=== PATIENT | male | born 1970 | race Two or more races ===

== ENCOUNTER 2024-05-22 09:25 | Emergency (ER) | payer MEDICAID, SELFPAY ==
[2024-05-22 09:48] VITALS: BP 95/66; PULSE 94; RESP 18; TEMP 37; O2SAT 98; BMI 21.4
--- NOTE | 2024-05-22 09:57 | XR_ITS ---
EXAMINATION: XR chest 1V portable ORDERING PROVIDER: Pantera Madrid (CEREAL CHEMIST), CEREAL CHEMIST HISTORY: cp TECHNIQUE: Single portable AP radiograph of the chest. COMPARISON: 09/02/2015, chest radiographs. FINDINGS: Lines and Tubes: None. Lungs: No consolidation. Projecting of the left lateral lower lung over the anterior left sixth rib is a 1.1 cm ovoid opacity, grossly similar to 09/02/2015. Pleura: No pneumothorax or pleural effusion. Cardiomediastinal Silhouette: Normal. Soft Tissues/Bones: Bifid anterior left fifth rib variant. IMPRESSION: 1. No acute pulmonary findings. 2. Similar 1.1 cm ovoid opacity projecting over the left lateral lower lung. This may represent prominent nipple shadow, summation of tissues, or underlying pulmonary nodule. Consider correlation with 2 view chest radiographs with nipple markers.
--- NOTE | 2024-05-22 09:57 | EKG_ITS ---
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
--- NOTE | 2024-05-22 09:58 | XR_ITS ---
EXAMINATION: CT head/brain wo con ORDERING PROVIDER: Pantera ZAMUDIO), SINGER BACK TENDER HISTORY: headache TECHNIQUE: CT scanner was used in the volumetric, helical non-contrast acquisition of the head with 2-D and 3-D reformats created on a separate workstation and submitted for interpretation. Institutional dose reducing protocols were utilized. RADIATION DOSE: DLP 1005.79 mGy-cm COMPARISON: None. FINDINGS: BRAIN: No acute intracranial hemorrhage, mass effect, or midline shift. OBANDO-WHITE DIFFERENTIATION: Preserved. EXTRA-AXIAL SPACES: No abnormal collection. SULCI: Normal. VENTRICLES: Normal. BASAL CISTERNS: Normal. VESSELS: No hyperdense vessel sign. DURAL VENOUS SINUSES: Symmetric attenuation. POSTERIOR FOSSA: Normal. MASTOID AIR CELLS: Clear. PARANASAL SINUSES: Trace mucosal thickening right anterior ethmoid air cells. ORBITS: Normal. BONES: Normal. SCALP: Normal. IMPRESSION: No acute intracranial findings.
--- NOTE | 2024-05-22 09:58 | PD.EDRME ---
Rapid Medical Screening Exam RME Arrival date/time: 05/22/24 09:25 54-year-old male insulin-dependent diabetic presents the emergency department today complains of inability see out of his right eye since patient reports headache dizziness and unsteadiness Chief Complaint: Shortness of Breath/Dyspnea Vital signs: Vital Signs Temperature 98.6 F 05/22/24 09:48 Pulse Rate 94 05/22/24 09:48 Respiratory Rate 18 05/22/24 09:48 Blood Pressure 95/66 05/22/24 09:48 Pulse Oximetry (%) 98 05/22/24 09:48 Oxygen Delivery Method Room Air 05/22/24 09:48
[2024-05-22 10:00] VITALS: PULSE 88
[2024-05-22 10:40] VITALS: BP 130/86; PULSE 94; RESP 14; TEMP 36.9; O2SAT 96
[2024-05-22] MEDS: SODIUM CHLORIDE 0.9% 1000 ML 1,000 ML 999 ML IV ×2 (10:40→11:51)
[2024-05-22 10:56] LABS: Base Excess, Venous 7 (-3-3); O2 Saturation, Venous 35 % (96-97); PCO2, Venous 56 mmHg (36-56); PO2, Venous 22 mmHg (15-58); pH, Venous 7.38 (7.33-7.66)
[2024-05-22 11:02] LABS: Basophils % (Auto) 0 % (0-2.5); Eosinophils # (Auto) 0.1 Thou/mm3 (0.0-0.5); Eosinophils % (Auto) 1 % (0-10); Hematocrit 37.1 % (41.0-53.0); Immature Granulocytes % (Auto) 0 % (0-0); Immature Granulocytes Auto 0.02 Thou/mm3 (0.00-0.00); Lymphocytes # (Auto) 1.4 Thou/mm3 (1.0-4.8); Lymphocytes % (Auto) 23 % (10-50); Mean Corpuscular Volume 86 fL (80-100); Monocytes # (Auto) 0.5 Thou/mm3 (0.0-0.8); Monocytes % (Auto) 8 % (0-12); Neutrophils # (Auto) 3.9 Thou/mm3 (1.8-7.7); Neutrophils % (Auto) 67 % (37-80); Nucleated Red Blood Cell % 0 /100 WBC (0); Platelet Count 195 Thou/mm3 (140-440); RDW Standard Deviation 38.5 fL (35.1-43.9); Red Blood Count 4.34 Miln/mm3 (4.50-5.90); White Blood Count 5.8 Thou/mm3 (3.8-10.6)
[2024-05-22 11:05] LABS: Beta Hydroxybutyrate 1.8 mmol/L (<0.6)
[2024-05-22 11:20] LABS: Collection Type, Urine Clean Catch; Squamous Epithelial Cell,Urine 0 /hpf (0-5)
[2024-05-22 11:25] LABS: INR 0.9 (0.9-1.3); Prothrombin Time 10.3 Seconds (9.0-12.2)
[2024-05-22 11:32] LABS: B-Type Natriuretic Peptide < 20 pg/mL (0-100)
--- NOTE | 2024-05-22 11:39 | EDNOTE_ITS ---
ED General RME/HPI General Chief complaint: Shortness of Breath/Dyspnea Stated complaint: SOB, LEG NUMBNESS, LOSS SIGHT LEFT EYE; DIABETIC Time Seen by Provider: 05/22/24 10:47 Arrival date/time: 05/22/24 09:25 RME / HPI RME / HPI narrative: 05/22/24 09:25 54-year-old male insulin-dependent diabetic presents the emergency department today complains of inability see out of his right eye since patient reports headache dizziness and unsteadiness DR. AYALA MAIN ED EVALUATION: 54 year old male with past medical history significant for diabetes presents to the Emergency Department with complaints of shortness of breath, dyspnea on exertion, dizziness, right eye erythema and right eye blurred vision. Patient reported that this morning he walked 9 to 15 feet and got short of breath and dizzy spells . He states he thought maybe since he has not ate and made breakfast but still feels dizzy and short of breath. He noncompliant with his diabetic medications. He also reports that his right eye has been red and watery since , 4 days ago; he also has right eye blurred vision. Related Data Previous Rx's ?Medication ?Instructions ?Recorded insulin glargine 100 unit/mL 5 unit (0.05 mL) subcut Q PM #2 09/05/15 subcutaneous solution (Lantus vials U-100 Insulin) insulin regular human 100 unit/mL 0 unit (0 mL) subcut ACHS #2 vials 09/05/15 injection solution (Novolin R Regular U-100 Insulin) ondansetron HCl 4 mg tablet 4 mg PO QID PRN nausea and 10/02/18 (Zofran) vomiting #30 tabs famotidine 20 mg tablet 20 mg PO QDAY #14 tabs 09/23 ondansetron 4 mg disintegrating 4 mg PO Q8H #14 tabs 0 09/23/21 tablet erythromycin 5 mg/gram (0.5 %) eye 0.5 inch ophthalmic (eye) QID 10 05/22/24 ointment days #50 grams Allergies Allergy/AdvReac Type Severity Reaction Status Date / Time No Known Allergies Allergy Verified 05/22/24 09:32 Review of Systems Review of Systems Systems Reviewed: All systems reviewed, normal except as documented Narrative Review of Systems: GEN: No fever, no chills, no weight loss EYES: + right eye erythema and watery, + right eye blurred vision, no pain HEENT: No ear pain, no congestion, no sore throat PULM: + shortness of breath, no cough, no congestion CV: No chest pain, + dyspnea on exertion, no palpitations GI: No nausea, no vomiting, no diarrhea, no pain, no constipation : No frequency, no urgency and no dysuria MUSC/SKEL: No joint pain, no back pain SKIN: No rash PSYCH: No hallucinations, no depression HEME/LYMPH: No easy bleeding or bruising tendencies NEURO: No weakness, no headache, + dizziness Past Medical History Past Medical History ENDOCRINE: Positive Diabetes Mellitus Type 2 Social History SMOKING STATUS: Never smoker SUBSTANCE USE: does not use ALCOHOL: Never ED Exam Narrative Physical exam: GENERAL APPEARANCE: alert and oriented x 4, well-developed, well-nourished, no acute distress VITALS: All vitals were reviewed and the pulse ox is 96% on room air, which is normal according to my interpretation. HEENT: Normocephalic, atraumatic; corneal injection; mucous membranes pink, moist; oropharynx clear NECK: Supple LUNGS: CTABL; no wheezes, no rales, no rhonchi HEART: Regular rate, regular rhythm; normal S1, S2; no murmurs ABDOMEN: non distended; normal BS; soft, no tenderness, no guarding, no rebound; no masses, no organomegaly, no hernia BACK: no CVA tenderness EXTREMITIES: atraumatic; no edema NEUROLOGIC: awake; alert and oriented x4; cranial nerves II-XII grossly intact; no focal sensory or motor deficits PSYCHIATRIC: appropriate mood and affect SKIN: warm, dry, normal color; no rashes Course Quality Measures none Orders Category Date Time Status Bedside Blood Glucose NOW Care 05/22/24 09:57 Completed Bedside Blood Glucose Q1HR Care 05/22/24 10:51 Completed Bull Float Finisher NOW Care 05/22/24 10:00 Completed EKG (ED ONLY) *Do not use* NOW Care 05/22/24 09:57 Completed Insert IV NOW Care 05/22/24 10:00 Completed Visual Acuity NOW Care 05/22/24 10:[address] head/brain wo con Stat Exams 05/22/24 09:58 Completed EKG (ED Only) Stat Exams 05/22/24 09:57 Draft XR chest 1V portable Stat Exams 05/22/24 09:57 Completed B-Type Natriuretic Peptide Stat Lab 05/22/24 10:40 Completed Beta Hydroxybutyrate Stat Lab 05/22/24 10:40 Completed CBC Stat Lab 05/22/24 10:40 Completed Comprehensive Metabolic Panel Stat Lab 05/22/24 10:40 Completed Drug Screen,Urine Stat Lab 05/22/24 10:41 Completed Magnesium Stat Lab 05/22/24 10:40 Completed Misc Send Out* Stat Lab 05/22/24 10:40 Received Partial Thromboplastin Time Stat Lab 05/22/24 10:40 Completed Prothrombin Time with INR Stat Lab 05/22/24 10:40 Completed Troponin I Stat Lab 05/22/24 10:40 Completed Urinalysis Stat Lab 05/22/24 10:41 Completed VBG [Venous Blood Gas] Stat Lab 05/22/24 10:40 Completed Insulin Regular Med 05/22/24 13:30 Discontinued 5 unit IV X1 ONE Insulin Regular Med 05/22/24 14:58 Discontinued 5 unit IV X1 ONE Sodium Chloride 0.9% 1000 ml [Ns] 1,000 ml Med 05/22/24 10:00 Discontinued IV 999 mls/hr Sodium Chloride 0.9% 1000 ml [Ns] 1,000 ml Med 05/22/24 11:31 Discontinued IV 999 mls/hr Vital Signs Vital signs: Vital Signs Temperature 98.6 F 05/22/24 09:48 Pulse Rate 94 05/22/24 09:48 Respiratory Rate 18 05/22/24 09:48 Blood Pressure 95/66 05/22/24 09:48 Pulse Oximetry (%) 98 05/22/24 09:48 Oxygen Delivery Method Room Air 05/22/24 09:48 Procedures -ED EKG Interpretation #1: Date of EK05/22/24 Time of EK:07 Rate: 92 Interpretation: Interpreted by me Additional EKG comment: sinus rhythm, rate 92, no acute ischemic changes MDM Patient data External records reviewed:: [facility] previous records (Reviewed last ED visit dated 09/23/21, discharged with the following: abdominal pain) Clinical information provided by:: patient Social determinants that could affect healthcare access:: none Patient has the following chronic illnesses:: diabetes How is presenting disease/condition affected by chronic disease/condition?: e xacerbated by Evaluation data The following diagnostics were reviewed and interpreted by me:: lab results, radiology exam(s) and EKG tracing(s) (EKG#1: EKG at 1007 hours. Interpreted by me: sinus rhythm, rate 92, no acute ischemic changes) Lab and/or radiology exams considered but not ordered:: none Interpretation Summary: Procedure(s): XR chest 1V portable Accession Number(s): [id number] cc: Julius ZAMUDIO),Pantera FARRIS; Albin Sifuentes MD~ EXAMINATION: XR chest 1V portable ORDERING PROVIDER: Pantera Madrid NP, NP HISTORY: cp TECHNIQUE: Single portable AP radiograph of the chest. COMPARISON: 09/02/2015, chest radiographs. FINDINGS: Lines and Tubes: None. Lungs: No consolidation. Projecting of the left lateral lower lung over the anterior left sixth rib is a 1.1 cm ovoid opacity, grossly similar to 09/02/2015. Pleura: No pneumothorax or pleural effusion. Cardiomediastinal Silhouette: Normal. Soft Tissues/Bones: Bifid anterior left fifth rib variant. IMPRESSION: 1. No acute pulmonary findings. 2. Similar 1.1 cm ovoid opacity projecting over the left lateral lower lung. This may represent prominent nipple shadow, summation of tissues, or underlying pulmonary nodule. Consider correlation with 2 view chest radiographs with nipple markers. Dictated By: Albin Sifuentes MD Procedure(s): CT head/brain wo con Accession Number(s): [id number] cc: Julius (KALEIGH),Pantera FARRIS; Albin Sifuentes MD~ EXAMINATION: CT head/brain wo con ORDERING PROVIDER: Pantera Deppen (GLAZE MIXER), GLAZE MIXER HISTORY: headache TECHNIQUE: CT scanner was used in the volumetric, helical non-contrast acquisition of the head with 2-D and 3-D reformats created on a separate workstation and submitted for interpretation. Institutional dose reducing protocols were utilized. RADIATION DOSE: DLP 1005.79 mGy-cm COMPARISON: None. FINDINGS: BRAIN: No acute intracranial hemorrhage, mass effect, or midline shift. OBANDO-WHITE DIFFERENTIATION: Preserved. EXTRA-AXIAL SPACES: No abnormal collection. SULCI: Normal. VENTRICLES: Normal. BASAL CISTERNS: Normal. VESSELS: No hyperdense vessel sign. DURAL VENOUS SINUSES: Symmetric attenuation. POSTERIOR FOSSA: Normal. MASTOID AIR CELLS: Clear. PARANASAL SINUSES: Trace mucosal thickening right anterior ethmoid air cells. ORBITS: Normal. BONES: Normal. SCALP: Normal. IMPRESSION: No acute intracranial findings. Dictated By: Albin Sifuentes MD Medications Medications considered but not ordered:: none Medication administrations:: Medication Administration History Discontinued Medications Sodium Chloride (Ns) 1,000 mls @ 999 mls/hr IV .Q1H1M ONE Stop: 05/22/24 11:00 Last Infusion: 05/22/24 13:33 Dose: Infused Documented By: Admin: 05/22/24 10:40 Dose: 999 mls/hr Documented By: MAGDALENO Sodium Chloride (Ns) 1,000 mls @ 999 mls/hr IV .Q1H1M ONE Stop: 05/22/24 12:31 Last Infusion: 05/22/24 13:33 Dose: Infused Documented By: Admin: 05/22/24 11:51 Dose: 999 mls/hr Documented By: MAGDALENO Insulin Human Regular (Insulin Hum Regular 1 Unit/0.01 Ml (Per Unit)) 5 unit IV X1 ONE Stop: 05/22/24 13:31 Last Admin: 05/22/24 14:05 Dose: 5 unit Documented By: TRINIDAD Co-signed By: ARMOND Insulin Human Regular (Insulin Hum Regular 1 Unit/0.01 Ml (Per Unit)) 5 unit IV X1 ONE Stop: 05/22/24 14:59 Last Admin: 05/22/24 15:13 Dose: 5 unit Documented By: SERENITY Co-signed By: TRINIDAD see above Consultations Consultation(s) initiated? (list below): No Diagnosis Differential Diagnosis ED Complaint MDM: DKA, vertigo, pneumonia, influenza, PE Most likely diagnosis given after review of the tests above:: Hyperglycemia Noncomplaince with diabetes treatment Conjunctivitis Admission Indicated Admission indicated?: not indicated Explain why admission is indicated or not indicated:: Patient has no emergent abnormalities on his studies and can be managed on an outpatient basis. Admission Request Was there a request for admission?: No Disposition Plan Disposition Plan: Discharge Discharge Attestation Discharge Attestation: The patient and all family members were given an opportunity to ask questions and understood the discharge instructions. Discharge instructions specifically effects, indications for sooner follow up or return to the emergency department, and the expected course of current diagnosis. Patient condition: Stable Medical Decision Making Differential Diagnosis Differential Diagnosis: DKA, vertigo, pneumonia, influenza, PE Lab Data 05/22/24 10:40 05/22/24 10:40 Labs: Lab Results 05/22/24 05/22/24 Range/Units 10:40 10:41 WBC 5.8 (3.8-10.6) Thou/mm3 RBC 4.34 L (4.50-5.90) Miln/mm3 Hgb 13.0 L (13.5-16.0) g/dL Hct 37.1 L (41.0-53.0) % MCV 86 (80-100) fL MCH 30.0 (25.0-35.0) pg MCHC 35.0 (31.0-37.0) g/dl RDW Std Deviation 38.5 (35.1-43.9) fL Plt Count 195 (140-440) Thou/mm3 Neut % (Auto) 67 (37-80) % Lymph % (Auto) 23 (10-50) % [place] % (Auto) 8 (0-12) % Eos % (Auto) 1 (0-10) % Baso % (Auto) 0 (0-2.5) % Neut # (Auto) 3.9 (1.8-7.7) Thou/mm3 Lymph # (Auto) 1.4 (1.0-4.8) Thou/mm3 [place] # (Auto) 0.5 (0.0-0.8) Thou/mm3 Eos # (Auto) 0.1 (0.0-0.5) Thou/mm3 Baso # (Auto) 0.0 (0.0-0.2) Thou/mm3 Immature Gran # (Auto) 0.02 H (0.00-0.00) Thou/mm3 Absolute Nucleated RBC 0.00 (0.00-0.00) Thou/mm3 Immature Gran % 0 (0-0) % Nucleated RBC % 0 (0) /100 WBC PT 10.3 (9.0-12.2) Seconds INR 0.9 (0.9-1.3) APTT 23.0 (22.0-36.0) Seconds VBG pH 7.38 (7.33-7.66) VBG pCO2 56 (36-56) mmHg VBG pO2 22 (15-58) mmHg VBG O2 Sat (Jazz) 35 L (96-97) % VBG Base Excess 7 H (-3-3) Sodium 130 L (136-145) mMol/L Potassium 4.5 (3.4-5.1) mMol/L Chloride 92 L (98-107) mMol/L Carbon Dioxide 32.0 H (20.0-31.0) mMol/L Anion Gap 6 L (7-16) BUN 18 (9-23) mg/dL Creatinine 0.9 (0.6-1.3) mg/dL Estim Creat Clear Calc 89.7 (>60) mL/min eGFR > 60 (60 - ) See Note BUN/Creatinine Ratio 20 (12-20) Ratio Glucose 561 H* (74-106) mg/dL Estimated Ave Glu mg/dL Cancelled Hemoglobin A1c Cancelled Calculated Osmolality 288 (275-295) Calcium 9.6 (8.3-10.6) mg/dL Corrected Calcium 9.9 (8.5-10.1) mg/dL Magnesium 2.0 (1.6-2.6) mg/dL Total Bilirubin 0.4 (0.3-1.2) mg/dL AST 74 H (0-34) U/L ALT 166 H (10-49) U/L Alkaline Phosphatase 230 H (46-116) U/L Troponin I < 0.002 (0.0-0.045) ng/mL B-Natriuretic Peptide < 20 (0-100) pg/mL Total Protein 6.6 (5.7-8.2) gm/dL Albumin 3.6 (3.5-5.0) gm/dL Globulin 3.0 (2.3-3.5) gm/dL Albumin/Globulin Ratio 1.2 (1.2-2.2) Beta-Hydroxybutyrate/Acetoacetate 1.8 H (<0.6) mmol/L Ur Collection Type Clean Catch Urine Color Lt-Yellow (Lt Yel-Yel) Urine Clarity Clear (Clear/Hazy) Urine pH 5.0 (5.0-7.0) Ur Specific [place] 1.035 (1.001-1.035) Urine Protein Trace (Neg - Trace) Urine Glucose (UA) 4+ A (Negative) Urine Ketones 1+ A (Negative) Urine Blood Negative (Negative) Urine Nitrite Negative (Negative) Urine Bilirubin Negative (Negative) Urine Urobilinogen (Auto) Negative (0.0-1.0) mg/dL Ur Leukocyte Esterase Negative (Negative) Urine RBC < 1 (0-3) /hpf Urine WBC < 1 (0-5) /hpf Ur Squamous Epith Cells 0 (0-5) /hpf Urine Bacteria None (None) Urine Yeast (Budding) Present A (None) Urine Opiates Screen Negative (Negative) Urine Fentanyl Screen Negative (Negative) Ur Barbiturates Screen Negative (Negative) U Amphetamin/Meth Scrn Negative (Negative) U Benzodiazepines Scrn Negative (Negative) U Cocaine Metab Screen Negative (Negative) U Marijuana (THC) Screen Positive A (Negative) Discharge Plan Plan Patient Disposition: HOME (Self Care) Prescriptions/Referrals Prescriptions/Med Rec: New erythromycin 5 mg/gram (0.5 %) ointment 0.5 inch ophthalmic (eye) QID 10 Days Qty: 50 0RF No Action Lantus U-100 Insulin 100 U/ML solution 5 unit Sub-Q QPM Qty: 2 0RF Novolin R Regular U100 Insulin 1 UNIT/0.01 ML unit 0 unit Sub-Q ACHS Qty: 2 0RF ondansetron 4 mg tablet,disintegrating 4 mg PO Q8H Qty: 14 0RF famotidine 20 mg tablet 20 mg PO QDAY Qty: 14 0RF ondansetron HCl [Zofran] 4 mg tablet 4 mg PO QID PRN (Reason: nausea and vomiting) Qty: 30 0RF Referrals: Tremayne Valle MD [Primary Care Provider] - In 1 week Problem List Clinical Impression: Hyperglycemia, Noncompliance with diabetes treatment, Conjunctivitis Patient/Caregiver Discharge Instructions Education Materials: ED Conjunctivitis, Nonspecific, ED Diabetes with High Blood Sugar Additional Instructions: Follow up with your doctor for referral to ophthalmology Print Language: Montserratian Stand Alone Forms: Iris Award Info., Patient Portal Info Letter
[2024-05-22 11:42] LABS: Alanine Aminotransferase 166 U/L (10-49); Albumin, Serum 3.6 gm/dL (3.5-5.0); Albumin/Globulin Ratio 1.2 (1.2-2.2); Alkaline Phosphatase 230 U/L (46-116); Anion Gap 6 (7-16); Aspartate Amino Transferase 74 U/L (0-34); BUN/Creatinine Ratio 20 Ratio (12-20); Bilirubin,Total 0.4 mg/dL (0.3-1.2); Blood Urea Nitrogen 18 mg/dL (9-23); Calcium 9.6 mg/dL (8.3-10.6); Calcium (Corrected) 9.9 mg/dL (8.5-10.1); Chloride 92 mMol/L (98-107); Creatinine (Component) 0.9 mg/dL (0.6-1.3); Estimated Creatinine Clearance 89.7 mL/min (>60); Osmolality,Calculated 288 (275-295); Potassium 4.5 mMol/L (3.4-5.1); Sodium 130 mMol/L (136-145); Total Protein 6.6 gm/dL (5.7-8.2); Troponin I < 0.002 ng/mL (0.0-0.045); eGFR > 60 See Note
[2024-05-22 11:47] LABS: Glucose 561 mg/dL (74-106)
[2024-05-22 12:01] LABS: Bilirubin,Urine Negative (Negative); Blood,Urine Negative (Negative); Budding Yeast,Urine Present; Clarity,Urine Clear (Clear/Hazy); Color,Urine Lt-Yellow (Lt Yel-Yel); Glucose, Urine 4+ (Negative); Ketones,Urine 1+ (Negative); Leukocyte Esterase,Urine Negative (Negative); Nitrite,Urine Negative (Negative); Protein,Urine Trace (Neg - Trace); RBC,Urine < 1 /hpf (0-3); Specific Gravity,Urine 1.035 (1.001-1.035); Urobilinogen,Urine Negative mg/dL (0.0-1.0); WBC,Urine < 1 /hpf (0-5)
[2024-05-22 12:06] LABS: Amphetamine/Methamp Scrn,U Negative (Negative); Barbiturate Screen,Urine Negative (Negative); Benzodiazepines Screen,Urine Negative (Negative); Benzoylecgonine Screen, Ur Negative (Negative); Fentanyl Screen,Urine Negative (Negative); Opiate Screen,Urine Negative (Negative); THC Screen,Urine Positive (Negative)
[2024-05-22 13:26] VITALS: BP 156/106; BP 166/115; PULSE 83; RESP 17; TEMP 36.5; O2SAT 100
[2024-05-22] MEDS: INSULIN HUM REGULAR 1 UNIT/0.01 ML (PER UNIT) 5 UNIT IV ×2 (14:05→15:13)
[2024-05-23 08:39] LABS: Misc Send Out* See Sep Rpt
== END 2024-05-22 16:33 | disposition home or self-care (01) ==
PROVIDERS: Nurse Practitioner Primary Care; Emergency Provider Emergency Medicine; PCP Family Medicine
DX: E11.65 Type 2 diabetes mellitus with hyperglycemia (principal); H10.9 Unspecified conjunctivitis; Z91.148 Patient's other noncompliance with medication regimen for other reason
CPT/HCPCS: 36415; 70450; 71045; 80053; 80307; 81001; 82010; 82803; 83036; 83735; 83880; 84484; 85025; 85610; 85730; 93005; 96360; 96361; 99284; J1815; J7030

== ENCOUNTER 2024-07-30 11:42 | Emergency (ER) | payer MEDICAID, SELFPAY ==
[2024-07-30 12:20] VITALS: BP 92/62; PULSE 100; RESP 18; TEMP 36.6; O2SAT 98; BMI 19.7
--- NOTE | 2024-07-30 12:34 | EDRME_ITS ---
Rapid Medical Screening Exam [facility] Arrival date/time: 07/30/24 11:42 This is a 54-year-old male that comes into the emergency room with complaints of coffee-ground emesis. Patient states he has not been able to keep any food down. Patient states that he has a lot of burning in his esophagus and upper abdomen. Patient states what he is vomiting up is coffee ground colored. Patient reports history of diabetes. Patient does have a history of alcohol use but states has been over 10 years. Patient reports a history of diarrhea 5 days ago. Patient denies fever or chills. I have greeted and performed a focused initial assessment of this patient. Initial appropriate labs ordered at this time. A comprehensive ED assessment and evaluation of the patient and analysis of all test and completion of medical decision making process will be conducted by additional ED provider. Chief Complaint: Abdominal Pain Time Seen by Provider: 07/30/24 12:02 Vital signs: Vital Signs Temperature 97.9 F 07/30/24 12:20 Pulse Rate 100 07/30/24 12:20 Respiratory Rate 18 07/30/24 12:20 Blood Pressure 92/62 07/30/24 12:20 Pulse Oximetry (%) 98 07/30/24 12:20 Oxygen Delivery Method Room Air 07/30/24 12:20
[2024-07-30 13:19] LABS: Basophils % (Auto) 1 % (0-2.5); Eosinophils # (Auto) 0.1 Thou/mm3 (0.0-0.5); Eosinophils % (Auto) 1 % (0-10); Hematocrit 37.2 % (41.0-53.0); Hemoglobin 13.2 g/dL (13.5-16.0); Immature Granulocytes % (Auto) 0 % (0-0); Immature Granulocytes Auto 0.02 Thou/mm3 (0.00-0.00); Lymphocytes # (Auto) 1.4 Thou/mm3 (1.0-4.8); Lymphocytes % (Auto) 25 % (10-50); Mean Corpuscular HGB Conc 35.5 g/dl (31.0-37.0); Mean Corpuscular Hemoglobin 30.6 pg (25.0-35.0); Mean Corpuscular Volume 86 fL (80-100); Monocytes # (Auto) 0.6 Thou/mm3 (0.0-0.8); Monocytes % (Auto) 10 % (0-12); Neutrophils # (Auto) 3.5 Thou/mm3 (1.8-7.7); Neutrophils % (Auto) 62 % (37-80); Nucleated Red Blood Cell % 0 /100 WBC (0); Platelet Count 210 Thou/mm3 (140-440); RDW Standard Deviation 37.2 fL (35.1-43.9); Red Blood Count 4.32 Miln/mm3 (4.50-5.90); White Blood Count 5.6 Thou/mm3 (3.8-10.6)
[2024-07-30 13:35] LABS: Prothrombin Time 11.1 Seconds (9.0-12.2)
[2024-07-30 13:43] LABS: Alanine Aminotransferase 188 U/L (10-49); Albumin, Serum 3.7 gm/dL (3.5-5.0); Albumin/Globulin Ratio 1.1 (1.2-2.2); Alkaline Phosphatase 130 U/L (46-116); Anion Gap 12 (7-16); Aspartate Amino Transferase 109 U/L (0-34); BUN/Creatinine Ratio 31 Ratio (12-20); Bilirubin,Total 0.5 mg/dL (0.3-1.2); Blood Urea Nitrogen 28 mg/dL (9-23); Calcium 9.1 mg/dL (8.3-10.6); Calcium (Corrected) 9.3 mg/dL (8.5-10.1); Carbon Dioxide 28.4 mMol/L (20.0-31.0); Chloride 92 mMol/L (98-107); Creatinine (Component) 0.9 mg/dL (0.6-1.3); Estimated Creatinine Clearance 82.6 mL/min (>60); Globulin 3.3 gm/dL (2.3-3.5); Osmolality,Calculated 291 (275-295); Potassium 5.1 mMol/L (3.4-5.1); Sodium 132 mMol/L (136-145); eGFR > 60 See Note
[2024-07-30 13:54] LABS: Glucose 474 mg/dL (74-106)
--- NOTE | 2024-07-30 15:03 | PD.EDABDPN ---
ED Abdominal Pain RME/HPI General Chief Complaint: Abdominal Pain Stated complaint: STOMACH ON FIRE , VOMIT BILE; WEAK, CONSTIPATED Time seen by provider: 07/30/24 12:02 Arrival date/time: 07/30/24 11:42 RME / HPI RME / HPI narrative: 07/30/24 11:42 This is a 54-year-old male that comes into the emergency room with complaints of coffee-ground emesis. Patient states he has not been able to keep any food down. Patient states that he has a lot of burning in his esophagus and upper abdomen. Patient states what he is vomiting up is coffee ground colored. Patient reports history of diabetes. Patient does have a history of alcohol use but states has been over 10 years. Patient reports a history of diarrhea 5 days ago. Patient denies fever or chills. I have greeted and performed a focused initial assessment of this patient. Initial appropriate labs ordered at this time. A comprehensive ED assessment and evaluation of the patient and analysis of all test and completion of medical decision making process will be conducted by additional ED provider. DR. CASILLAS MAIN ED EVALUATION: 54 y/o male with Hx of GERD presents to ED c/o increased acid production, regurging of acid, and vomiting of undigested food. Patient has not been taking his insulin as he concerned for blood sugar being too low since he has not been able to eat. Denies any abdominal pain. No other concerns or complaints expressed at this time. Related Data Previous Rx's ?Medication ?Instructions ?Recorded insulin glargine 100 unit/mL 5 unit (0.05 mL) subcut QPM #2 09/05/15 subcutaneous solution (Lantus vials U-100 Insulin) insulin regular human 100 unit/mL 0 unit (0 mL) subcut ACHS #2 vials 09/05/15 injection solution (Novolin R Regular U-100 Insulin) ondansetron HCl 4 mg tablet 4 mg PO QID PRN nausea and 10/02/18 (Zofran) vomiting #30 tabs famotidine 20 mg tablet 20 mg PO QDAY #14 tabs 09/23/21 ondansetron 4 mg disintegrating 4 mg PO Q8H #14 tabs 09/23/21 tablet famotidine 40 mg tablet 40 mg PO QDAY #10 tabs 07/30/24 metoclopramide HCl 10 mg tablet 10 mg PO BID PRN nausea and 07/30/24 (Reglan) vomiting #14 tabs Allergies Allergy/AdvReac Type Severity Reaction Status Date / Time No Known Allergies Allergy Verified 07/30/24 11:47 Review of Systems Review of Systems Systems Reviewed: All systems reviewed, normal except as documented Narrative Review of Systems: Gen: No fever, no chills, no weight loss EYES: No discharge, no visual changes, no pain HEENT: No ear pain, no congestion, no sore throat PULM: No shortness of breath, no cough, no congestion CV: No chest pain, no dyspnea on exertion, no palpitations GI: No nausea, no vomiting, no diarrhea, no pain, no constipation : No frequency, no urgency, no dysuria Musc/skel: No joint pain, no back pain Skin: No rash Psyc: No hallucinations, no depression Heme/Lymph: No easy bleeding or bruising tendencies Neuro: No weakness, no headache Past Medical History Past Medical History ENDOCRINE: Positive Diabetes Mellitus Type 2 ED Exam Narrative Physical exam: GENERAL APPEARANCE: AxOx4, generally well-appearing, no acute distress. HEENT: NC, AT. MMM. EOMI, clear conjunctiva, oropharynx clear. NECK: Supple without lymphadenopathy. No stiffness or restricted ROM. HEART: Normal rate and regular rhythm, normal S1/S1, no m/r/g LUNGS: CTAB, moving air well. No crackles or wheezes are heard. ABDOMEN: Soft, nontender, nondistended with good bowel sounds heard. BACK: No midline C/T/L spine pain or deformity, No CVAT, no obvious deformity. EXTREMITIES: Without cyanosis, clubbing or edema. MUSCULOSKELETAL: FROM of all major joints, no chest tenderness NEUROLOGICAL: Grossly nonfocal. Alert and oriented, moving all 4 extremities. CN not formally tested but appear grossly intact. Observed to ambulate with normal gait. Skin: Warm and dry without any rash. Course Quality Measures none Orders Category Date Time Status CBC Stat Lab 07/30/24 12:48 Completed Comprehensive Metabolic Panel Stat Lab 07/30/24 12:48 Completed PT [Prothrombin Time with INR] Stat Lab 07/30/24 12:48 Completed Type and Screen Stat Lab 07/30/24 12:48 Completed Insulin Regular Med 07/30/24 15:09 Discontinued 6 unit SC X1 ONE Lidocaine 2% Viscous [Xylocaine 2% Viscous] Med 07/30/24 15:03 Discontinued 15 ml PO X1 ONE Metoclopramide Inj [Reglan Inj] Med 07/30/24 15:03 Discontinued 10 mg IM X1 ONE mg Hyd/Al Hyd/Tuyet Susp [Maalox Susp] Med 07/30/24 15:03 Discontinued 30 ml PO X1 ONE Vital Signs Vital signs: Vital Signs Temperature 97.9 F 07/30/24 12:20 Pulse Rate 100 07/30/24 12:20 Respiratory Rate 18 07/30/24 12:20 Blood Pressure 92/62 07/30/24 12:20 Pulse Oximetry (%) 98 07/30/24 12:20 Oxygen Delivery Method Room Air 07/30/24 12:20 Abdominal Pain MDM MDM Narrative MDM Narrative:: Scribe Attestation: Sunitha Clement am scribing for and in the presence of Dr. Casillas. Provider Notation: Although this document has been carefully reviewed, there may still be some phonetic and other typographical errors.? These errors are purely grammatical due to imperfections in the software program and should not be construed in any way to? compromise the substance of the patient's medical care during this visit. Patient data External records reviewed:: [facility] previous records (Reviewed prior ED records from 05/22/24. Patient was seen for Conjunctivitis.) Clinical information provided by:: patient Social determinants that could affect healthcare access:: none Evaluation data The following diagnostics were reviewed and interpreted by me:: lab results Lab and/or radiology exams considered but not ordered:: None Medications / Prescriptions Medications or Prescriptions considered but not ordered:: None Medication administrations:: Medication Administration History Discontinued Medications Al Hydrox/Mg Hydrox/Simethicone (Mg Hyd/Al Hyd/Tuyet (Maalox Reg) Susp 30 Ml Udc) 30 ml PO X1 ONE Stop: 07/30/24 15:04 Insulin Human Regular (Insulin Hum Regular 1 Unit/0.01 Ml (Per Unit)) 6 unit SC X1 ONE Stop: 07/30/24 15:10 Lidocaine HCl (Lidocaine Viscous 2% 15 Ml Udc) 15 ml PO X1 ONE Stop: 07/30/24 15:04 Metoclopramide HCl (Metoclopramide Inj 5 Mg/Ml Vial 2 Ml) 10 mg IM X1 ONE; Protocol Stop: 07/30/24 15:04 See above if any Discharge Plan Plan Patient Disposition: HOME (Self Care) Prescriptions/Referrals Prescriptions/Med Rec: New metoclopramide HCl [Reglan] 10 mg tablet 10 mg PO BID PRN (Reason: nausea and vomiting) Qty: 14 0RF famotidine 40 mg tablet 40 mg PO QDAY Qty: 10 0RF No Action Lantus U-100 Insulin 100 U/ML solution 5 unit Sub-Q QPM Qty: 2 0RF Novolin R Regular U100 Insulin 1 UNIT/0.01 ML unit 0 unit Sub-Q ACHS Qty: 2 0RF ondansetron 4 mg tablet,disintegrating 4 mg PO Q8H Qty: 14 0RF famotidine 20 mg tablet 20 mg PO QDAY Qty: 14 0RF ondansetron HCl [Zofran] 4 mg tablet 4 mg PO QID PRN (Reason: nausea and vomiting) Qty: 30 0RF Referrals: Tremayne Valle MD [Primary Care Provider] - In 1 week Problem List Clinical Impression: Diabetic gastroparesis, Chronic GERD Patient/Caregiver Discharge Instructions Education Materials: Delayed Gastric Emptying, ED GERD (Adult), ED Diabetic Gastroparesis Additional Instructions: You can continue your home insulin/diabetes medications. [place] diet for 48 hours. Follow-up your primary doctor in 3-5 days for recheck. You can return to the emergency department sooner if symptoms worsen or for any new or concerning issues. Print Language: Kiswahili Stand Alone Forms: [employer] Award Info., Patient Portal Info Letter
--- NOTE | 2024-07-30 15:23 | PD.EDADULT ---
ED General RME/HPI General Chief complaint: Abdominal Pain Stated complaint: STOMACH ON FIRE , VOMIT BILE; WEAK, CONSTIPATED Time Seen by Provider: 07/30/24 12:02 Arrival date/time: 07/30/24 11:42 RME / HPI RME / HPI narrative: 07/30/24 11:42 This is a 54-year-old male that comes into the emergency room with complaints of coffee-ground emesis. Patient states he has not been able to keep any food down. Patient states that he has a lot of burning in his esophagus and upper abdomen. Patient states what he is vomiting up is coffee ground colored. Patient reports history of diabetes. Patient does have a history of alcohol use but states has been over 10 years. Patient reports a history of diarrhea 5 days ago. Patient denies fever or chills. I have greeted and performed a focused initial assessment of this patient. Initial appropriate labs ordered at this time. A comprehensive ED assessment and evaluation of the patient and analysis of all test and completion of medical decision making process will be conducted by additional ED provider. DR. DICKENS MAIN ED EVALUATION: 54 y/o male with Hx of Type II DM presents to ED c/o increased acid production, regurging of acid, and vomiting of undigested food. Patient has not been taking his insulin as he concerned for blood sugar being too low since he has not been able to keep any food down. Denies any abdominal pain or previous abdominal surgeries. No other concerns or complaints expressed at this time. Related Data Previous Rx's ?Medication ?Instructions ?Recorded insulin glargine 100 unit/mL 5 unit (0.05 mL) subcut QPM #2 09/05/15 subcutaneous solution (Lantus vials U-100 Insulin) insulin regular human 100 unit/mL 0 unit (0 mL) subcut ACHS #2 vials 09/05/15 injection solution (Novolin R Regular U-100 Insulin) ondansetron HCl 4 mg tablet 4 mg PO QID PRN nausea and 10/02/18 (Zofran) vomiting #30 tabs famotidine 20 mg tablet 20 mg PO QDAY #14 tabs 09/23/21 ondansetron 4 mg disintegrating 4 mg PO Q8H #14 tabs 09/23/21 tablet famotidine 40 mg tablet 40 mg PO QDAY #10 tabs 07/30/24 metoclopramide HCl 10 mg tablet 10 mg PO BID PRN nausea and 07/30/24 (Reglan) vomiting #14 tabs Allergies Allergy/AdvReac Type Severity Reaction Status Date / Time No Known Allergies Allergy Verified 07/30/24 11:47 Review of Systems Review of Systems Systems Reviewed: All systems reviewed, normal except as documented Narrative Review of Systems: Gen: No fever, no chills, no weight loss EYES: No discharge, no visual changes, no pain HEENT: No ear pain, no congestion, no sore throat PULM: No shortness of breath, no cough, no congestion CV: No chest pain, no dyspnea on exertion, no palpitations GI: Positve vomiting, regurging acid, increased acid production, no diarrhea, no pain, no constipation : No frequency, no urgency, no dysuria Musc/skel: No joint pain, no back pain Skin: No rash Psyc: No hallucinations, no depression Heme/Lymph: No easy bleeding or bruising tendencies Neuro: No weakness, no headache Past Medical History Past Medical History ENDOCRINE: Positive Diabetes Mellitus Type 2 ED Exam Narrative Physical exam: GENERAL APPEARANCE: AxOx4, generally well-appearing, no acute distress. HEENT: NC, AT. MMM. EOMI, clear conjunctiva, oropharynx clear. NECK: Supple without lymphadenopathy. No stiffness or restricted ROM. HEART: Normal rate and regular rhythm, normal S1/S1, no m/r/g LUNGS: CTAB, moving air well. No crackles or wheezes are heard. ABDOMEN: Soft, nontender, nondistended with good bowel sounds heard. BACK: No midline C/T/L spine pain or deformity, No CVAT, no obvious deformity. EXTREMITIES: Without cyanosis, clubbing or edema. MUSCULOSKELETAL: FROM of all major joints, no chest tenderness NEUROLOGICAL: Grossly nonfocal. Alert and oriented, moving all 4 extremities. CN not formally tested but appear grossly intact. Observed to ambulate with normal gait. Skin: Warm and dry without any rash. Course Quality Measures none Orders Category Date Time Status Bedside Blood Glucose NOW Care 07/30/24 17:35 Completed CBC Stat Lab 07/30/24 12:48 Completed Comprehensive Metabolic Panel Stat Lab 07/30/24 12:48 Completed PT [Prothrombin Time with INR] Stat Lab 07/30/24 12:48 Completed Type and Screen Stat Lab 07/30/24 12:48 Completed Insulin Regular Med 07/30/24 15:09 Discontinued 6 unit SC X1 ONE Lidocaine 2% Viscous [Xylocaine 2% Viscous] Med 07/30/24 15:03 Discontinued 15 ml PO X1 ONE Metoclopramide Inj [Reglan Inj] Med 07/30/24 15:03 Discontinued 10 mg IM X1 ONE mg Hyd/Al Hyd/Tuyet Susp [Maalox Susp] Med 07/30/24 15:03 Discontinued 30 ml PO X1 ONE Vital Signs Vital signs: Vital Signs Temperature 97.9 F 07/30/24 12:20 Pulse Rate 100 07/30/24 12:20 Respiratory Rate 18 07/30/24 12:20 Blood Pressure 92/62 07/30/24 12:20 Pulse Oximetry (%) 98 07/30/24 12:20 Oxygen Delivery Method Room Air 07/30/24 12:20 Discharge Plan Plan Patient Disposition: HOME (Self Care) Prescriptions/Referrals Prescriptions/Med Rec: New metoclopramide HCl [Reglan] 10 mg tablet 10 mg PO BID PRN (Reason: nausea and vomiting) Qty: 14 0RF famotidine 40 mg tablet 40 mg PO QDAY Qty: 10 0RF No Action Lantus U-100 Insulin 100 U/ML solution 5 unit Sub-Q QPM Qty: 2 0RF Novolin R Regular U100 Insulin 1 UNIT/0.01 ML unit 0 unit Sub-Q ACHS Qty: 2 0RF ondansetron 4 mg tablet,disintegrating 4 mg PO Q8H Qty: 14 0RF famotidine 20 mg tablet 20 mg PO QDAY Qty: 14 0RF ondansetron HCl [Zofran] 4 mg tablet 4 mg PO QID PRN (Reason: nausea and vomiting) Qty: 30 0RF Referrals: Tremayne Valle MD [Primary Care Provider] - In 1 week Problem List Clinical Impression: Diabetic gastroparesis, Chronic GERD Patient/Caregiver Discharge Instructions Education Materials: Delayed Gastric Emptying, ED GERD (Adult), ED Diabetic Gastroparesis Additional Instructions: You can continue your home insulin/diabetes medications. [place] diet for 48 hours. Follow-up your primary doctor in 3-5 days for recheck. You can return to the emergency department sooner if symptoms worsen or for any new or concerning issues. Print Language: Latvian Stand Alone Forms: [employer] Award Info., Patient Portal Info Letter MDM Narrative Sign Out note: Mr. Ames presents to the emergency department with poorly controlled diabetes and emesis of undigested food suggestive of diabetic gastroparesis. He describes this as a chronic issue where particularly he is vomiting up stomach acid . Review review of his medical record shows prescriptions for Zofran before in the past. Due to his subjective complaints he was administered Reglan here for suspected gastroparesis followed by a GI cocktail. Symptoms had improved significant was able to tolerate foods well. Laboratory testing sent via the E process returned with no acute findings, but was significant for a elevated glucose without signs of ketosis. He was given a dose of insulin subcutaneous here and advised/reassured to continue his normal insulin regimen at home. MDM hospital course (for use when minimal MDM required): Scribe Attestation: Sunitha Clement, am scribing for and in the presence of Dr. Dickens. Provider Notation: Although this document has been carefully reviewed, there may still be some phonetic and other typographical errors.? These errors are purely grammatical due to imperfections in the software program and should not be construed in any way to? compromise the substance of the patient's medical care during this visit. Clinical Information Provided by: patient Medical Records reviewed [facility] Meds/Rx considered, not ordered None Labs/Rad/Tests considered, not ordered None Chronic Illness/Social Conditions Explain: Type II DM EKG EKG not done Labs Labs: interpreted by me and see narrative above Medication Administration(s) Medication Administration History Discontinued Medications Al Hydrox/Mg Hydrox/Simethicone (Mg Hyd/Al Hyd/Tuyet (Maalox Reg) Susp 30 Ml Udc) 30 ml PO X1 ONE Stop: 07/30/24 15:04 Last Admin: 07/30/24 17:36 Dose: 30 ml Documented By: ABIMBOLA Insulin Human Regular (Insulin Hum Regular 1 Unit/0.01 Ml (Per Unit)) 6 unit SC X1 ONE Stop: 07/30/24 15:10 Last Admin: 07/30/24 17:39 Dose: 6 unit Documented By: ABIMBOLA Co-signed By: MONALISA Lidocaine HCl (Lidocaine Viscous 2% 15 Ml Udc) 15 ml PO X1 ONE Stop: 07/30/24 15:04 Last Admin: 07/30/24 17:36 Dose: 15 ml Documented By: ABIMBOLA Metoclopramide HCl (Metoclopramide Inj 5 Mg/Ml Vial 2 Ml) 10 mg IM X1 ONE; Protocol Stop: 07/30/24 15:04 Last Admin: 07/30/24 17:37 Dose: 10 mg Documented By: ABIMBOLA See above if any Diagnosis Differential Diagnosis ED Complaint MDM: Hypoglycemia, GERD, Gastric outlet obstruction, dyspepsia
[2024-07-30 15:41] VITALS: BP 160/107; PULSE 85; RESP 18; TEMP 36.6; O2SAT 97
[2024-07-30] MEDS: LIDOCAINE VISCOUS 2% 15 ML UDC PO (17:36)
[2024-07-30] MEDS: MG HYD/AL HYD/SIME (Maalox Reg) SUSP 30 ML UDC PO (17:36)
[2024-07-30] MEDS: METOCLOPRAMIDE INJ 5 MG/ML VIAL 2 ML 10 MG IM (17:37)
[2024-07-30] MEDS: INSULIN HUM REGULAR 1 UNIT/0.01 ML (PER UNIT) 6 UNIT SC (17:39)
[2024-07-30 18:01] VITALS: BP 158/108; PULSE 91; RESP 16; TEMP 36.9; O2SAT 97
[2024-07-30 18:13] VITALS: BP 155/89; PULSE 78; RESP 16; TEMP 36.6; O2SAT 99
== END 2024-07-30 18:14 | disposition home or self-care (01) ==
PROVIDERS: Nurse Practitioner Family; Emergency Provider Emergency Medicine; PCP Family Medicine
DX: E11.43 Type 2 diabetes mellitus with diabetic autonomic (poly)neuropathy (principal); K31.84 Gastroparesis; K21.9 Gastro-esophageal reflux disease without esophagitis
CPT/HCPCS: 36415; 80053; 85025; 85610; 86850; 86900; 86901; 96372; 99283; J1815; J2765; J3490; A9270

== ENCOUNTER 2024-09-20 10:13 | Emergency (ER) | payer MEDICAID, SELFPAY ==
[2024-09-20] VITALS (10 sets, daily range): BP systolic 85–172; BP diastolic 57–109; PULSE 85–94; RESP 11–24; TEMP 36.5–36.7; O2SAT 96–100; BMI 21.5
--- NOTE | 2024-09-20 10:23 | EKG_ITS ---
[facility] Test Date: 2024-09-20 Pat Name: AMAIRANI STEVENS Department: Room: - Gender: Male Sword Swallower: : 1970 Requested By: Pantera Madrid (KALEIGH) Order Number: [id number] Reading MD: Pantera Madrid (EXPENDITURE REQUISITION CLERK) Measurements Intervals [place] Rate: 90 P: 64 MT: 150 QRS: -9 QRSD: 85 T: 59 QT: 362 QTc: 444 Interpretive Statements SINUS RHYTHM Compared to ECG 05/22/2024 10:07:03 T-wave abnormality no longer present /store/S0/[id number]/ecg/[id number].pdf
--- NOTE | 2024-09-20 10:49 | XR_ITS ---
Examination: CT brain head without contrast. 2-D sagittal coronal reconstructions Date and time of exam:September 20, 2024 1116 hours INDICATIONS: Dizziness episodes today COMPARISON: May 22, 2024 CTDI: vol (mGy):50 DLP: (mGycm):997 Technique: Multiple CT axial sections of the brain have been obtained, 5 mm slice thickness. Contrast has not been administered. 2-D sagittal, coronal reconstructions have been obtained Low dose protocols were performed. One or more of the following dose reduction techniques were used; automated exposure control, adjustment of the mA and/or KV according to patient size, use of iterative reconstruction technique. Findings: No significant ventricular enlargement. Intra-axial or extra-axial hemorrhage density is not seen. No mass effect or midline shift Basal cisterns are not remarkable. Fourth ventricle is midline. Cranial vault intact. Impression: Negative for acute hemorrhage, mass effect or midline shift Advise clinical correlation and follow-up accordingly
--- NOTE | 2024-09-20 10:49 | XR_ITS ---
Examination: AP chest single view TECHNIQUE: AP portable upright chest single view Date and time: September 20, 2024 1617 hours Comparison May 22, 2024 INDICATIONS: Acute chest pain today. FINDINGS: Normal heart size. Lungs are clear. Moderate osteopenia IMPRESSION: No active disease
--- NOTE | 2024-09-20 10:49 | PD.EDRME ---
Rapid Medical Screening Exam E Arrival date/time: 09/20/24 10:13 54-year-old male with medical history significant for diabetes presents to the emergency department for complaint of headache and dizziness ongoing x 1 month Chief Complaint: Dizziness Time Seen by Provider: 09/20/24 10:23 Vital signs: Vital Signs Temperature 98.0 F 09/20/24 10:24 Pulse Rate 94 09/20/24 10:24 Respiratory Rate 17 09/20/24 10:24 Blood Pressure 85/61 L 09/20/24 10:24 Pulse Oximetry (%) 99 09/20/24 10:24 Oxygen Delivery Method Room Air 09/20/24 10:24
[2024-09-20 11:23] LABS: Basophils # (Auto) 0.0 Thou/mm3 (0.0-0.2); Basophils % (Auto) 1 % (0-2.5); Eosinophils # (Auto) 0.2 Thou/mm3 (0.0-0.5); Eosinophils % (Auto) 3 % (0-10); Hematocrit 37.9 % (41.0-53.0); Hemoglobin 13.4 g/dL (13.5-16.0); Immature Granulocytes Auto 0.02 Thou/mm3 (0.00-0.00); Lymphocytes # (Auto) 1.4 Thou/mm3 (1.0-4.8); Lymphocytes % (Auto) 26 % (10-50); Mean Corpuscular HGB Conc 35.4 g/dl (31.0-37.0); Mean Corpuscular Hemoglobin 30.0 pg (25.0-35.0); Mean Corpuscular Volume 85 fL (80-100); Monocytes # (Auto) 0.5 Thou/mm3 (0.0-0.8); Monocytes % (Auto) 10 % (0-12); Neutrophils # (Auto) 3.2 Thou/mm3 (1.8-7.7); Neutrophils % (Auto) 61 % (37-80); Nucleated Red Blood Cell # 0.00 Thou/mm3 (0.00-0.00); Nucleated Red Blood Cell % 0 /100 WBC (0); Platelet Count 190 Thou/mm3 (140-440); RDW Standard Deviation 36.0 fL (35.1-43.9); Red Blood Count 4.47 Miln/mm3 (4.50-5.90); White Blood Count 5.3 Thou/mm3 (3.8-10.6)
[2024-09-20 11:26] LABS: Collection Type, Urine Clean Catch; Squamous Epithelial Cell,Urine 0 /hpf (0-5)
[2024-09-20 11:29] LABS: INR 1.0 (0.9-1.3); Partial Thromboplastin Time 24.9 Seconds (22.0-36.0); Prothrombin Time 11.4 Seconds (9.0-12.2)
[2024-09-20 11:31] LABS: B-Type Natriuretic Peptide < 20 pg/mL (0-100)
[2024-09-20 11:34] LABS: Alanine Aminotransferase 149 U/L (10-49); Albumin, Serum 3.7 gm/dL (3.5-5.0); Albumin/Globulin Ratio 1.1 (1.2-2.2); Alkaline Phosphatase 78 U/L (46-116); Anion Gap 11 (7-16); Aspartate Amino Transferase 142 U/L (0-34); BUN/Creatinine Ratio 24 Ratio (12-20); Bilirubin,Total 0.9 mg/dL (0.3-1.2); Blood Urea Nitrogen 22 mg/dL (9-23); Calcium 9.2 mg/dL (8.3-10.6); Calcium (Corrected) 9.4 mg/dL (8.5-10.1); Carbon Dioxide 29.7 mMol/L (20.0-31.0); Chloride 99 mMol/L (98-107); Creatinine (Component) 0.9 mg/dL (0.6-1.3); Estimated Creatinine Clearance 87.3 mL/min (>60); Globulin 3.5 gm/dL (2.3-3.5); Glucose 161 mg/dL (74-106); Magnesium 1.6 mg/dL (1.6-2.6); Osmolality,Calculated 285 (275-295); Potassium 3.7 mMol/L (3.4-5.1); Sodium 140 mMol/L (136-145); Total Protein 7.2 gm/dL (5.7-8.2); Troponin I < 0.002 ng/mL (0.0-0.045); eGFR > 60 See Note
[2024-09-20 12:11] LABS: Amphetamine/Methamp Scrn,U Negative (Negative); Barbiturate Screen,Urine Negative (Negative); Benzodiazepines Screen,Urine Negative (Negative); Benzoylecgonine Screen, Ur Negative (Negative); Fentanyl Screen,Urine Negative (Negative); Opiate Screen,Urine Negative (Negative); THC Screen,Urine Positive (Negative)
[2024-09-20 12:16] LABS: Bilirubin,Urine Negative (Negative); Blood,Urine Negative (Negative); Clarity,Urine Clear (Clear/Hazy); Color,Urine Yellow (Lt Yel-Yel); Glucose, Urine 1+ (Negative); Hyaline Casts,Urine < 1 /hpf (0-1); Ketones,Urine Trace (Negative); Leukocyte Esterase,Urine Negative (Negative); Nitrite,Urine Negative (Negative); PH,Urine 6.0 (5.0-7.0); Protein,Urine 2+ (Neg - Trace); RBC,Urine 2 /hpf (0-3); Specific Gravity,Urine 1.029 (1.001-1.035); Urobilinogen,Urine 8.0 mg/dL (0.0-1.0); WBC,Urine 1 /hpf (0-5)
--- NOTE | 2024-09-20 12:17 | EDNOTE_ITS ---
ED Dizzyness RME/HPI General Chief Complaint: Dizziness Stated Complaint: LIGHTHEADED,DIZZINESS,NO APPETITE,N/V Time Seen by Provider: 09/20/24 10:23 Arrival date/time: 09/20/24 10:13 Limitations: no limitations RME / HPI RME / HPI Narrative: Patient is a 54-year-old male with a history of diabetes and hepatitis C. He states he has had ongoing dizziness and headache since May of this year. Has gotten worse over the last month. He states he has not seen his primary care provider for this. Has not had cardiology or GI consult in the past. Denies any falls or injuries. Has no unilateral weakness or paresthesias. No vision changes, nausea, or vomiting. He has no other acute concerns. Related Data Previous Rx's ?Medication ?Instructions ?Recorded insulin glargine 100 unit/mL 5 unit (0.05 mL) subcut Q PM #2 09/05/15 subcutaneous solution (Lantus vials U-100 Insulin) insulin regular human 100 unit/mL 0 unit (0 mL) subcut ACHS #2 vials 09/05/15 injection solution (Novolin R Regular U-100 Insulin) ondansetron HCl 4 mg tablet 4 mg PO QID PRN nausea and 10/02/18 (Zofran) vomiting #30 tabs famotidine 20 mg tablet 20 mg PO QDAY #14 tabs 09/23 ondansetron 4 mg disintegrating 4 mg PO Q8H #14 tabs 0 09/23/21 tablet famotidine 40 mg tablet 40 mg PO QDAY #10 tabs 07/30 metoclopramide HCl 10 mg tablet 10 mg PO BID PRN nause a and 07/30/24 (Reglan) vomiting #14 tabs Allergies Allergy/AdvReac Type Severity Reaction Status Date / Time No Known Allergies Allergy Verified 09/20/24 10:16 Review of Systems Review of Systems Systems Reviewed: All systems reviewed, normal except as documented ED Exam General Limitations: Present no limitations General appearance: Present alert and in no apparent distress Head Head exam: Present atraumatic Eye Eye exam: Present normal appearance, PERRL and EOMI ENT ENT exam: Present normal exam, normal oropharynx and mucous membranes moist Neck Neck exam: Present normal inspection, full ROM and trachea midline Chest Chest inspection: Present normal inspection and symmetric chest wall rise Respiratory Respiratory exam: Present normal lung sounds bilaterally Cardiovascular Cardiovascular exam: Present regular rate, normal rhythm and normal heart sounds Abdominal Exam Abdominal exam: Present soft and normal bowel sounds Extremities Exam Extremities exam: Present normal inspection and full ROM Back Exam Back exam: Present normal inspection and full ROM Neurological Exam Neurological exam: Present alert and oriented X3 Psychiatric Psychiatric exam: Present normal affect and normal mood Skin Skin exam: Present warm, dry, intact and normal color Course Quality Measures none Orders Category Date Time Status EKG (ED ONLY) *Do not use* NOW Care 09/20/24 10:[address] head/brain wo con Stat Exams 09/20/24 10:49 Completed EKG (ED Only) Stat Exams 09/20/24 10:23 Draft XR chest 1V portable Stat Exams 09/20/24 10:49 Completed B-Type Natriuretic Peptide Stat Lab 09/20/24 10:51 Completed CBC Stat Lab 09/20/24 10:51 Completed Comprehensive Metabolic Panel Stat Lab 09/20/24 10:51 Completed Drug Screen,Urine Stat Lab 09/20/24 11:00 Completed Magnesium Stat Lab 09/20/24 10:51 Completed Partial Thromboplastin Time Stat Lab 09/20/24 10:51 Completed Prothrombin Time with INR Stat Lab 09/20/24 10:51 Completed Troponin I Stat Lab 09/20/24 10:51 Completed Urinalysis Stat Lab 09/20/24 11:00 Completed Vital Signs Vital signs: Vital Signs Temperature 98.0 F 09/20/24 10:24 Pulse Rate 94 09/20/24 10:24 Respiratory Rate 17 09/20/24 10:24 Blood Pressure 85/61 L 09/20/24 10:24 Pulse Oximetry (%) 99 09/20/24 10:24 Oxygen Delivery Method Room Air 09/20/24 10:24 Dizziness MDM Narrative MDM Narrative:: Patient is a 54-year-old male with a history of diabetes and hepatitis C. He states he has had ongoing dizziness and headache since May of this year. Has gotten worse over the last month. He states he has not seen his primary care provider for this. Has not had cardiology or GI consult in the past. Denies any falls or injuries. Has no unilateral weakness or paresthesias. No vision changes, nausea, or vomiting. He has no other acute concerns. On exam, patient is nontoxic-appearing and in no visible signs of distress. He has no leukocytosis. He he has no significant anemia. Katy [place] panel is significant for elevated AST and ALT. He is AST is 142 and ALT is 149. Bicarb is 29, total bili 0.9, alk phos is unremarkable. Troponin is negative. Urinalysis unremarkable. His CT is unremarkable. His workup was essentially benign. Patient advised to discontinue marijuana use. Will have him follow-up with GI for his hepatitis C. He is also advised to follow-up with his primary care provider and consider cardiology workup. Return anytime for worsening emergent changes. Patient data External records reviewed:: None Clinical information provided by:: patient Social determinants that could affect healthcare access:: substance use Patient has the following chronic illnesses:: Hepatitis C, diabetes How is presenting disease/condition affected by chronic disease/condition?: exacerbated by Evaluation data The following diagnostics were reviewed and interpreted by me:: lab results (AST 142, ALT 149, labs are otherwise unremarkable), radiology exam(s) (Clear and expanded lungs without mass or infiltrate) and EKG tracing(s) (Normal sinus rhythm at [address] changes or or dynamic T waves.) Lab and/or radiology exams considered but not ordered:: n/a Interpretation Summary: Elevated liver enzymes, workup was otherwise unremarkable Medications / Prescriptions Medications or Prescriptions considered but not ordered:: n/a Medication administrations:: n/a Consultations Consultation(s) initiated? (list below): No Diagnosis Dizziness Differential Diagnosis: benign paroxysmal positional vertigo, orthostatic hypotension and cerebrovascular accident Most likely diagnosis given after review of the tests above:: Chronic dizziness Admission Indicated Admission indicated?: not indicated Admission Request Was there a request for admission?: No Disposition Plan Disposition Plan: Discharge Discharge Attestation Discharge Attestation: The patient and all family members were given an opportunity to ask questions and understood the discharge instructions. Discharge instructions specifically effects, indications for sooner follow up or return to the emergency department, and the expected course of current diagnosis. Patient condition: Stable Discharge Plan Plan Patient Disposition: HOME (Self Care) Patient condition on transfer: Stable Prescriptions/Referrals Prescriptions/Med Rec: No Action Lantus U-100 Insulin 100 U/ML solution 5 unit Sub-Q QPM Qty: 2 0RF Novolin R Regular U100 Insulin 1 UNIT/0.01 ML unit 0 unit Sub-Q ACHS Qty: 2 0RF ondansetron 4 mg tablet,disintegrating 4 mg PO Q8H Qty: 14 0RF famotidine 20 mg tablet 20 mg PO QDAY Qty: 14 0RF ondansetron HCl [Zofran] 4 mg tablet 4 mg PO QID PRN (Reason: nausea and vomiting) Qty: 30 0RF metoclopramide HCl [Reglan] 10 mg tablet 10 mg PO BID PRN (Reason: nausea and vomiting) Qty: 14 0RF famotidine 40 mg tablet 40 mg PO QDAY Qty: 10 0RF Referrals: Tremayne Valle MD [Primary Care Provider] - In 1 week Problem List Clinical Impression: Hepatitis, Dizziness Patient/Caregiver Discharge Instructions Education Materials: Tests for Liver Disease, ED Dizziness, Uncertain Cause Additional Instructions: - We will refer you to GI for follow-up. - You will also need to follow-up with your primary care provider and consider cardiology consult for your dizziness. - Please return at anytime for any worsening changes as needed. Print Language: Nepali Stand Alone Forms: [employer] Award Info., Patient Portal Info Letter
== END 2024-09-20 14:45 | disposition home or self-care (01) ==
PROVIDERS: Nurse Practitioner Primary Care; Emergency Provider Family Medicine; PCP Family Medicine
DX: B19.20 Unspecified viral hepatitis C without hepatic coma (principal); R42 Dizziness and giddiness; R07.9 Chest pain, unspecified
CPT/HCPCS: 36415; 70450; 71045; 80053; 80307; 81001; 83735; 83880; 84484; 85025; 85610; 85730; 93005; 99283

== ENCOUNTER 2024-10-28 21:08 | Emergency (ER) | payer MEDICAID, SELFPAY ==
[2024-10-28 21:09] VITALS: BMI 20.7
--- NOTE | 2024-10-28 21:12 | EKG_ITS ---
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
[2024-10-28 21:17] VITALS: BP 95/64; PULSE 92; RESP 18; TEMP 36.6; O2SAT 98
--- NOTE | 2024-10-28 21:30 | XR_ITS ---
Examination: AP chest single view TECHNIQUE: AP upright portable chest single view Date and time: October 28, 2024, 2150 hours, comparison September 20, 2024 INDICATIONS: Chest pain shortness of breath today. FINDINGS: Normal heart size The lungs are clear. Moderate osteopenia. IMPRESSION: No active disease.
--- NOTE | 2024-10-28 21:31 | EDRME_ITS ---
Rapid Medical Screening Exam [facility] Arrival date/time: 10/28/24 21:08 54M with history of DM presents to ED with 1 month of intermittent dizziness and syncopal episodes. Patient was here last month for this as well. Patient states today, he felt dizzy and fainted. Patient states he caught the chair before he blacked out and woke up on the floor. Patient denies any pain. Patient recently hasn't been taking his insulin because his sugars have been fine. Chief Complaint: Syncope / Near Syncope Vital signs: Vital Signs Temperature 98 F 10/28/24 21:17 Pulse Rate 92 10/28/24 21:17 Respiratory Rate 18 10/28/24 21:17 Blood Pressure 95/64 10/28/24 21:17 Pulse Oximetry (%) 98 10/28/24 21:17 Oxygen Delivery Method Room Air 10/28/24 21:17
--- NOTE | 2024-10-28 21:32 | XR_ITS ---
Examination: CT brain head without contrast. 2-D sagittal coronal reconstructions Date and time of exam:October 28, 2024 1044 hours INDICATIONS: Dizziness with standing beginning 2 months ago CTDI: vol (mGy):47.3. DLP: (mGycm):981. Technique: Multiple CT axial sections of the brain have been obtained, 5 mm slice thickness. Contrast has not been administered. 2-D sagittal, coronal reconstructions have been obtained Low dose protocols were performed. One or more of the following dose reduction techniques were used; automated exposure control, adjustment of the mA and/or KV according to patient size, use of iterative reconstruction technique. Findings: No significant ventricular enlargement. Intra-axial or extra-axial hemorrhage density is not seen. No mass effect or midline shift Basal cisterns are not remarkable. Fourth ventricle is midline. Cranial vault intact. Impression: Negative for acute hemorrhage, mass effect or midline shift Advise clinical correlation and follow up accordingly
[2024-10-28 21:56] LABS: Base Excess, Venous 3 (-3-3); O2 Saturation, Venous 58 % (96-97); PCO2, Venous 43 mmHg (36-56); PO2, Venous 30 mmHg (15-58); pH, Venous 7.42 (7.33-7.66)
[2024-10-28 21:57] LABS: Basophils # (Auto) 0.0 Thou/mm3 (0.0-0.2); Basophils % (Auto) 0 % (0-2.5); Eosinophils # (Auto) 0.2 Thou/mm3 (0.0-0.5); Eosinophils % (Auto) 3 % (0-10); Hematocrit 36.4 % (41.0-53.0); Hemoglobin 12.8 g/dL (13.5-16.0); Immature Granulocytes Auto 0.00 Thou/mm3 (0.00-0.00); Lymphocytes # (Auto) 1.7 Thou/mm3 (1.0-4.8); Lymphocytes % (Auto) 31 % (10-50); Mean Corpuscular HGB Conc 35.2 g/dl (31.0-37.0); Mean Corpuscular Hemoglobin 29.9 pg (25.0-35.0); Mean Corpuscular Volume 85 fL (80-100); Monocytes # (Auto) 0.5 Thou/mm3 (0.0-0.8); Monocytes % (Auto) 10 % (0-12); Neutrophils # (Auto) 3.0 Thou/mm3 (1.8-7.7); Neutrophils % (Auto) 56 % (37-80); Nucleated Red Blood Cell # 0.00 Thou/mm3 (0.00-0.00); Nucleated Red Blood Cell % 0 /100 WBC (0); Platelet Count 181 Thou/mm3 (140-440); RDW Standard Deviation 35.8 fL (35.1-43.9); Red Blood Count 4.28 Miln/mm3 (4.50-5.90); White Blood Count 5.4 Thou/mm3 (3.8-10.6)
[2024-10-28 22:02] LABS: Beta Hydroxybutyrate 0.4 mmol/L (<0.6)
[2024-10-28 22:25] LABS: Alanine Aminotransferase 140 U/L (10-49); Albumin, Serum 4.0 gm/dL (3.5-5.0); Albumin/Globulin Ratio 1.2 (1.2-2.2); Alkaline Phosphatase 99 U/L (46-116); Anion Gap 10 (7-16); Aspartate Amino Transferase 90 U/L (0-34); BUN/Creatinine Ratio 13 Ratio (12-20); Bilirubin,Total 0.6 mg/dL (0.3-1.2); Blood Urea Nitrogen 17 mg/dL (9-23); Calcium 9.9 mg/dL (8.3-10.6); Calcium (Corrected) 9.9 mg/dL (8.5-10.1); Carbon Dioxide 27.1 mMol/L (20.0-31.0); Chloride 96 mMol/L (98-107); Creatinine (Component) 1.3 mg/dL (0.6-1.3); Estimated Creatinine Clearance 60.4 mL/min (>60); Globulin 3.3 gm/dL (2.3-3.5); Magnesium 1.8 mg/dL (1.6-2.6); Potassium 4.6 mMol/L (3.4-5.1); Sodium 133 mMol/L (136-145); Total Protein 7.3 gm/dL (5.7-8.2); Troponin I < 0.002 ng/mL (0.0-0.045); eGFR > 60 See Note
[2024-10-28 22:41] LABS: Osmolality,Calculated 286 (275-295)
[2024-10-28 22:44] LABS: Glucose 444 mg/dL (74-106)
[2024-10-29 00:42] LABS: Collection Type, Urine Clean Catch
[2024-10-29 01:09] LABS: Amorphous Crystals,Urine Present (Absent); Bacteria,Urine 1+; Bilirubin,Urine Negative (Negative); Blood,Urine Negative (Negative); Clarity,Urine Clear (Clear/Hazy); Color,Urine Yellow (Lt Yel-Yel); Glucose, Urine 4+ (Negative); Hyaline Casts,Urine 1 /hpf (0-1); Ketones,Urine Negative (Negative); Leukocyte Esterase,Urine Negative (Negative); Nitrite,Urine Negative (Negative); PH,Urine 6.0 (5.0-7.0); Protein,Urine 1+ (Neg - Trace); RBC,Urine 9 /hpf (0-3); Specific Gravity,Urine 1.038 (1.001-1.035); Squamous Epithelial Cell,Urine < 1 /hpf (0-5); Urobilinogen,Urine Negative mg/dL (0.0-1.0); WBC,Urine 5 /hpf (0-5)
[2024-10-29 01:10] LABS: Amphetamine/Methamp Scrn,U Negative (Negative); Barbiturate Screen,Urine Negative (Negative); Benzodiazepines Screen,Urine Negative (Negative); Benzoylecgonine Screen, Ur Negative (Negative); Fentanyl Screen,Urine Negative (Negative); Opiate Screen,Urine Negative (Negative); THC Screen,Urine Positive (Negative)
[2024-10-29 02:04] VITALS: BP 148/103; PULSE 84; RESP 17; TEMP 36.8; O2SAT 99
--- NOTE | 2024-10-29 02:21 | PD.EDSYNC ---
ED Syncope RME/HPI General Chief Complaint: Syncope / Near Syncope Stated Complaint: DIZZINESS SYNCOPE Arrival date/time: 10/28/24 21:08 RME / HPI RME / HPI narrative: 10/28/24 21:08 54M with history of DM presents to ED with 1 month of intermittent dizziness and syncopal episodes. Patient was here last month for this as well. Patient states today, he felt dizzy and fainted. Patient states he caught the chair before he blacked out and woke up on the floor. Patient denies any pain. Patient recently hasn't been taking his insulin because his sugars have been fine. DR. COLEY MAIN ED EVALUATION: 54 y/o male with Hx of presents with worsening intermittent dizziness and syncopal episodes x 5 days and 1 month overall. Patient admits he has not been taking his insulin as his blood sugar levels appeared within normal limits. No other concerns or complaints expressed at this time. Related Data Previous Rx's ?Medication ?Instructions ?Recorded insulin glargine 100 unit/mL 5 unit (0.05 mL) subcut QPM #2 09/05/15 subcutaneous solution (Lantus vials U-100 Insulin) insulin regular human 100 unit/mL 0 unit (0 mL) subcut ACHS #2 vials 09/05/15 injection solution (Novolin R Regular U-100 Insulin) ondansetron HCl 4 mg tablet 4 mg PO QID PRN nausea and 10/02/18 (Zofran) vomiting #30 tabs famotidine 20 mg tablet 20 mg PO QDAY #14 tabs 09/23/21 ondansetron 4 mg disintegrating 4 mg PO Q8H #14 tabs 09/23/21 tablet famotidine 40 mg tablet 40 mg PO QDAY #10 tabs 07/30/24 metoclopramide HCl 10 mg tablet 10 mg PO BID PRN nausea and 07/30/24 (Reglan) vomiting #14 tabs Allergies Allergy/AdvReac Type Severity Reaction Status Date / Time No Known Allergies Allergy Verified 10/28/24 21:12 Review of Systems Review of Systems Systems Reviewed: All systems reviewed, normal except as documented Past Medical History Past Medical History ENDOCRINE: Positive Diabetes Mellitus Type 2 ED Exam Narrative Physical exam: Generally patient is alert in no obvious distress, heart regular rate and rhythm, lungs clear to auscultation equal bilaterally, abdomen soft bowel sounds present nondistended nontender, skin is warm pale and dry, neurologic exam no focal motor or sensory deficits cranial nerves II through gross intact Simon Coma Scale is 15. Extremities showed no edema Course Course Course Narrative: CXR is ordered for determining the etiology of shortness of breath. Quality Measures none Orders Category Date Time Status Blood glucose [Bedside Blood Glucose] NOW Care 10/28/24 21:12 Active EKG (ED ONLY) *Do not use* NOW Care 10/28/24 21:[address] head/brain wo con Stat Exams 10/28/24 21:32 Completed EKG (ED Only) Stat Exams 10/28/24 21:12 Draft XR chest 1V portable Stat Exams 10/28/24 21:30 Completed Beta Hydroxybutyrate Stat Lab 10/28/24 21:48 Completed CBC Stat Lab 10/28/24 21:48 Completed Comprehensive Metabolic Panel Stat Lab 10/28/24 21:48 Completed Drug Screen,Urine Stat Lab 10/28/24 00:15 Completed Magnesium Stat Lab 10/28/24 21:48 Completed Troponin I Stat Lab 10/28/24 21:48 Completed Urinalysis Stat Lab 10/28/24 00:15 Completed VBG [Venous Blood Gas] Stat Lab 10/28/24 21:48 Completed Insulin Regular Med 10/29/24 02:19 Discontinued 10 unit SC X1 ONE Vital Signs Vital signs: Vital Signs Temperature 98 F 10/28/24 21:17 Pulse Rate 92 10/28/24 21:17 Respiratory Rate 18 10/28/24 21:17 Blood Pressure 95/64 10/28/24 21:17 Pulse Oximetry (%) 98 10/28/24 21:17 Oxygen Delivery Method Room Air 10/28/24 21:17 Syncope MDM Narrative MDM Narrative:: Scribe Attestation: I, Sunitha Martines, am scribing for and in the presence of Dr. Coley. Provider Notation: Although this document has been carefully reviewed, there may still be some phonetic and other typographical errors.? These errors are purely grammatical due to imperfections in the software program and should not be construed in any way to? compromise the substance of the patient's medical care during this visit. I interpreted all labs. Blood sugar is 444. Patient is not diabetic ketoacidosis. No anemia. No renal dysfunction. Patient was kept on continuous cardiac monitoring during the ER stay without incident. Patient has had problems with syncope in the past. He will receive 10 units of regular insulin subcu for his blood sugar 444 here in the emergency room. Patient is stable for discharge at this time. EKG done at 9:19 PM shows normal sinus rhythm at rate of 90 without ectopy or ischemic change. Patient data External records reviewed:: [facility] previous records (Reviewed prior ED records from 09/20/24. Patient was seen for Dizziness.) Clinical information provided by:: patient Social determinants that could affect healthcare access:: none Patient has the following chronic illnesses:: Diabetes Mellitus Type 2 How is presenting disease/condition affected by chronic disease/condition?: exacerbated by Evaluation data The following diagnostics were reviewed and interpreted by me:: lab results, radiology exam(s) and EKG tracing(s) Lab and/or radiology exams considered but not ordered:: None Interpretation Summary: RADIOLOGY Chest X-Ray: FINDINGS: Normal heart size The lungs are clear. Moderate osteopenia. IMPRESSION: No active disease. Head/Brain CT: Findings: No significant ventricular enlargement. Intra-axial or extra-axial hemorrhage density is not seen. No mass effect or midline shift Basal cisterns are not remarkable. Fourth ventricle is midline. Cranial vault intact. Impression: Negative for acute hemorrhage, mass effect or midline shift Advise clinical correlation and follow up accordingly Medications / Prescriptions Medications or Prescriptions considered but not ordered:: None Medication administrations:: Medication Administration History Discontinued Medications Insulin Human Regular (Insulin Hum Regular 1 Unit/0.01 Ml (Per Unit)) 10 unit SC X1 ONE Stop: 10/29/24 02:20 Last Admin: 10/29/24 02:26 Dose: 10 unit Documented By: MM Co-signed By: GUMARO See above Consultations Consultation(s) initiated? (list below): No Diagnosis Syncope Differential Diagnosis: syncope due to orthostatic hypotension, vasovagal syncope, complete atrioventricular block, subarachnoid hemorrhage, pulmonary embolism, dehydration and other (Hyperglycemia, Hypoglycemia) Most likely diagnosis given after review of the tests above:: None Admission Indicated Admission indicated?: not indicated Explain why admission is indicated or not indicated:: Patient does not meet admission criteria. Admission Request Was there a request for admission?: No Disposition Plan Disposition Plan: Discharge Discharge Attestation Discharge Attestation: The patient and all family members were given an opportunity to ask questions and understood the discharge instructions. Discharge instructions specifically effects, indications for sooner follow up or return to the emergency department, and the expected course of current diagnosis. Patient condition: Stable Discharge Plan Plan Patient Disposition: HOME (Self Care) Prescriptions/Referrals Prescriptions/Med Rec: No Action Lantus U-100 Insulin 100 U/ML solution 5 unit Sub-Q QPM Qty: 2 0RF Novolin R Regular U100 Insulin 1 UNIT/0.01 ML unit 0 unit Sub-Q ACHS Qty: 2 0RF ondansetron 4 mg tablet,disintegrating 4 mg PO Q8H Qty: 14 0RF famotidine 20 mg tablet 20 mg PO QDAY Qty: 14 0RF ondansetron HCl [Zofran] 4 mg tablet 4 mg PO QID PRN (Reason: nausea and vomiting) Qty: 30 0RF metoclopramide HCl [Reglan] 10 mg tablet 10 mg PO BID PRN (Reason: nausea and vomiting) Qty: 14 0RF famotidine 40 mg tablet 40 mg PO QDAY Qty: 10 0RF Referrals: Tremayne Valle MD [Primary Care Provider] - In 1 week Problem List Clinical Impression: Syncope, Poorly controlled diabetes mellitus Patient/Caregiver Discharge Instructions Additional Instructions: You must take your insulin as prescribed. Keep well-hydrated. Follow-up with your doctor. Return to ER as needed or if condition worsens. Print Language: Hungarian Stand Alone Forms: [employer] Award Info., Patient Portal Info Letter
[2024-10-29] MEDS: INSULIN HUM REGULAR 1 UNIT/0.01 ML (PER UNIT) 10 UNIT SC (02:26)
[2024-10-29 03:16] VITALS: BP 157/105; PULSE 84; RESP 18; TEMP 37.1; O2SAT 99
== END 2024-10-29 03:17 | disposition home or self-care (01) ==
PROVIDERS: Physician Assistant; Emergency Provider Emergency Medicine; PCP Family Medicine
DX: E11.65 Type 2 diabetes mellitus with hyperglycemia (principal); R55 Syncope and collapse; R06.02 Shortness of breath; Z91.128 Patient's intentional underdosing of medication regimen for other reason; Z79.4 Long term (current) use of insulin
CPT/HCPCS: 36415; 70450; 71045; 80053; 80307; 81001; 82010; 82803; 83735; 84484; 85025; 93005; 99283; J1815